=== PATIENT | male | born 1990 | race Caucasian/White ===

== ENCOUNTER 2021-04-28 13:19 | Inpatient (IN) | payer MEDICAID ==
[~2021-04-28] VITALS: Ht 162.6 cm; Wt 106.3 kg
[2021-04-29] MEDS ORDERED: ChlorproMAZINE HCL 100 MG TABLET PO PRN (16:00)
[2021-04-29] MEDS: OLANZapine 5 MG RAPDIS TABLET PO SCH (17:09)
[2021-04-29] MEDS: DIVALPROEX SODIUM 250 MG DR TABLET PO SCH ×2 (17:09→20:16)
[2021-04-29 18:35] VITALS: BP 122/61
[2021-04-29] MEDS ORDERED: INFLUENZA VIRUS VACCINE QVS 2021-22 (6MO+)/PF 60 MCG/0.5 ML SYRINGE IM. ONE (18:45)
[2021-04-29] MEDS: LORazepam 2 MG TABLET PO PRN (20:16)
[2021-04-29 21:31] LABS: AMPHET/METH SCREEN,URINE NEGATIVE (NEGATIVE); BARBITURATE SCREEN, URINE NEGATIVE (NEGATIVE); BENZODIAZEPINES SCREEN,URINE NEGATIVE (NEGATIVE); CANNABINOID SCREEN,URINE NEGATIVE (NEGATIVE); COCAINE SCREEN,URINE NEGATIVE (NEGATIVE); METHADONE SCREEN, URINE NEGATIVE (NEGATIVE); OPIATE SCREEN,URINE NEGATIVE (NEGATIVE)
[2021-04-29 21:36] LABS: APPEARANCE,URINE CLEAR (CLEAR); BILIRUBIN,URINE NEGATIVE (NEGATIVE); GLUCOSE, URINE (UA) NEGATIVE (NEGATIVE); KETONES,URINE NEGATIVE (NEGATIVE); LEUKOCYTE ESTERASE ,URINE NEGATIVE (NEGATIVE); NITRATE,URINE NEGATIVE (NEGATIVE); OCCULT BLOOD,URINE NEGATIVE (NEGATIVE); PH,URINE 6.5 (5.0-8.0); PROTEIN,URINE NEGATIVE (NEGATIVE); UROBILINOGEN,URINE 0.2 mg/dL (<=1.0)
[2021-04-29 21:43] LABS: PHENCYCLIDINE SCREEN,URINE NEGATIVE (NEGATIVE)
[2021-04-29] MEDS ORDERED: MAGNESIUM HYDROXIDE SUSPENSION 30 ML UDCUP PO PRN (21:45)
[2021-04-29] MEDS ORDERED: GuaiFENesin/D-METHORPHAN [SUGAR-FREE] 200-20MG/10 ML SYRUP UDCUP PO PRN (21:45)
[2021-04-29] MEDS ORDERED: OLANZapine 5 MG RAPDIS TABLET PO PRN (21:45)
[2021-04-29] MEDS ORDERED: HydrOXYzine PAMOATE 50 MG CAPSULE PO PRN (21:45)
[2021-04-29] MEDS ORDERED: LOPERAMIDE HCL 2 MG CAPSULE PO PRN (21:45)
[2021-04-29] MEDS ORDERED: ACETAMINOPHEN 325 MG TABLET PO PRN (21:45)
[2021-04-29] MEDS ORDERED: MAG HYDROX/AL HYDROX/SIMETH ES 30 ML SUSPENSION UDCUP PO PRN (21:45)
[2021-04-29] MEDS ORDERED: PROMETHAZINE HCL 25 MG TABLET PO PRN (21:45)
[2021-04-29] MEDS ORDERED: TUBERCULIN, PURIFIED PROTEIN DERIVATIVE 5 TU/0.1 ML SYRINGE ID ONE (21:45)
[2021-04-30] MEDS: MULTIVITAMINS WITH MINERALS, THERAPEUTIC TABLET PO SCH (08:27)
[2021-04-30] MEDS: OLANZapine 5 MG RAPDIS TABLET PO SCH ×2 (08:28→15:51)
[2021-04-30] MEDS: FOLIC ACID 1 MG TABLET PO SCH (08:28)
[2021-04-30] MEDS: THIAMINE 100 MG TABLET PO SCH ×2 (08:28→15:51)
[2021-04-30] MEDS: OMEGA-3/DHA/EPA/FISH OIL 1,000 MG CAPSULE PO SCH (08:28)
[2021-04-30] MEDS: CIPROFLOXACIN HCL 250 MG TABLET PO SCH ×2 (08:29→15:51)
[2021-04-30] MEDS: LevETIRAcetam 500 MG TABLET PO SCH ×2 (08:29→15:51)
[2021-04-30] MEDS: DIVALPROEX SODIUM 250 MG DR TABLET PO SCH ×3 (08:31→20:04)
[2021-04-30 10:15] LABS: BASOPHILS % (AUTO) 0.5 % (0.0-2.0); EOSINOPHILS % (AUTO) 4.4 % (1.0-6.0); HEMATOCRIT 41.8 % (41-53); HEMOGLOBIN 14.3 g/dL (13.5-17.5); LYMPHOCYTES # (AUTO) 1.7 K/uL (1.0-4.8); LYMPHOCYTES % (AUTO) 40.8 % (22.0-44.0); MEAN CORPUSCULAR HEMOGLOBIN 31.1 pg (26.0-34.0); MEAN CORPUSCULAR HGB CONC 34.1 G/dL (31.0-37.0); MEAN CORPUSCULAR VOLUME 91 fL (80-100); MONOCYTES # (AUTO) 0.2 K/uL (0.1-1.0); MONOCYTES % (AUTO) 4.8 % (2.0-9.0); NEUTROPHILS % (AUTO) 49.5 % (40.0-70.0); PLATELET COUNT (AUTO) 132 K/uL (150-450); RED BLOOD CELL COUNT(AUTO) 4.59 MIL/uL (4.50-5.90)
[2021-04-30 10:26] LABS: HEMOGLOBIN A1C 3.9 % (3.8-5.6)
[2021-04-30 10:38] LABS: ALANINE AMINOTRANSFERASE 17 U/L (12-78); ALKALINE PHOSPHATASE 82 U/L (46-116); ANION GAP 4 mmol/L (8-16); ASPARTATE AMINOTRANSFERASE 14 U/L (15-37); BILIRUBIN,TOTAL 0.6 mg/dL (0.1-1.0); CALCIUM, TOTAL 9.1 mg/dL (8.8-10.5); CARBON DIOXIDE 31 mmol/L (22-29); CHLORIDE 105 mmol/L (98-107); CHOL/HDL RATIO 3.2 (4.2-7.3); CHOLESTEROL 123 mg/dL (131-200); CREATININE 0.59 mg/dL (0.60-1.30); FREE T4 (FREE THYROXINE) 0.86 ng/dL (0.76-1.46); GLUCOSE,RANDOM 81 mg/dL (70-110); HDL CHOLESTEROL 39 mg/dL (40-60); LDL CHOL (CALC.) 65 mg/dL (0-130); POTASSIUM 4.4 mmol/L (3.5-5.1); SODIUM SERUM 140 mmol/L (136-145); THYROID STIMULATING HORMONE 4.83 uIU/mL (0.36-3.74); TOTAL PROTEIN, SERUM 6.8 g/dL (6.4-8.2); TRIGLYCERIDES 96 mg/dL (15-150); UREA NITROGEN, BLOOD 5 mg/dL (7-18); VALPROIC ACID 35 mcg/mL (50-100)
[2021-04-30 10:40] LABS: GLOMERULAR FILTR. RATE CALC > 60 mL/min (>60)
[2021-04-30] MEDS ORDERED: POVIDONE-IODINE 10% 240 ML SOLUTION TP ONE (10:59)
[2021-04-30 16:19] VITALS: BP 109/60
[2021-04-30] MEDS: NALTREXONE HCL 50 MG TABLET PO SCH (20:03)
[2021-04-30] MEDS: MELATONIN 5 MG TABLET PO SCH (20:04)
[2021-05-01] MEDS: LEVOTHYROXINE SODIUM 50 MCG TABLET PO SCH (06:57)
[2021-05-01 08:50] VITALS: BP 118/69
[2021-05-01] MEDS: CIPROFLOXACIN HCL 250 MG TABLET PO SCH ×2 (10:50→16:26)
[2021-05-01] MEDS: OMEGA-3/DHA/EPA/FISH OIL 1,000 MG CAPSULE PO SCH (10:52)
[2021-05-01] MEDS: MULTIVITAMINS WITH MINERALS, THERAPEUTIC TABLET PO SCH (10:52)
[2021-05-01] MEDS: FOLIC ACID 1 MG TABLET PO SCH (10:53)
[2021-05-01] MEDS: THIAMINE 100 MG TABLET PO SCH ×2 (10:53→16:26)
[2021-05-01] MEDS: OLANZapine 5 MG RAPDIS TABLET PO SCH ×2 (10:53→16:26)
[2021-05-01] MEDS: LevETIRAcetam 500 MG TABLET PO SCH ×2 (10:53→16:26)
[2021-05-01] MEDS: DIVALPROEX SODIUM 250 MG DR TABLET PO SCH ×3 (10:53→21:00)
[2021-05-01 16:00] VITALS: BP 138/74
[2021-05-01] MEDS: NALTREXONE HCL 50 MG TABLET PO SCH (21:00)
[2021-05-01] MEDS: MELATONIN 5 MG TABLET PO SCH (21:00)
[2021-05-01] MEDS: LORazepam 2 MG TABLET PO PRN (21:01)
[2021-05-02] MEDS: LEVOTHYROXINE SODIUM 50 MCG TABLET PO SCH (06:57)
[2021-05-02 08:39] VITALS: BP 108/60
[2021-05-02] MEDS: FOLIC ACID 1 MG TABLET PO SCH (08:58)
[2021-05-02] MEDS: CIPROFLOXACIN HCL 250 MG TABLET PO SCH ×2 (08:58→16:24)
[2021-05-02] MEDS: MULTIVITAMINS WITH MINERALS, THERAPEUTIC TABLET PO SCH (08:59)
[2021-05-02] MEDS: OLANZapine 5 MG RAPDIS TABLET PO SCH ×3 (08:59→16:26)
[2021-05-02] MEDS: LevETIRAcetam 500 MG TABLET PO SCH ×2 (08:59→16:26)
[2021-05-02] MEDS: THIAMINE 100 MG TABLET PO SCH ×2 (08:59→16:26)
[2021-05-02] MEDS: DIVALPROEX SODIUM 250 MG DR TABLET PO SCH ×3 (08:59→20:32)
[2021-05-02] MEDS: OMEGA-3/DHA/EPA/FISH OIL 1,000 MG CAPSULE PO SCH (09:00)
[2021-05-02 16:29] VITALS: BP 102/62
[2021-05-02] MEDS: NALTREXONE HCL 50 MG TABLET PO SCH (20:32)
[2021-05-02] MEDS: MELATONIN 5 MG TABLET PO SCH (20:33)
[2021-05-03] MEDS: LEVOTHYROXINE SODIUM 50 MCG TABLET PO SCH (06:10)
[2021-05-03] MEDS: FOLIC ACID 1 MG TABLET PO SCH (08:42)
[2021-05-03] MEDS: MULTIVITAMINS WITH MINERALS, THERAPEUTIC TABLET PO SCH (08:42)
[2021-05-03] MEDS: CIPROFLOXACIN HCL 250 MG TABLET PO SCH ×2 (08:43→17:00)
[2021-05-03] MEDS: THIAMINE 100 MG TABLET PO SCH ×2 (08:43→16:37)
[2021-05-03] MEDS: OLANZapine 5 MG RAPDIS TABLET PO SCH ×3 (08:43→16:37)
[2021-05-03] MEDS: LevETIRAcetam 500 MG TABLET PO SCH ×2 (08:43→16:37)
[2021-05-03] MEDS: DIVALPROEX SODIUM 250 MG DR TABLET PO SCH ×3 (08:43→20:04)
[2021-05-03] MEDS: OMEGA-3/DHA/EPA/FISH OIL 1,000 MG CAPSULE PO SCH (08:43)
[2021-05-03 09:26] VITALS: BP 115/60
[2021-05-03] MEDS: NALTREXONE HCL 50 MG TABLET PO SCH (20:03)
[2021-05-03] MEDS: MELATONIN 5 MG TABLET PO SCH (20:04)
[2021-05-04] MEDS: LEVOTHYROXINE SODIUM 50 MCG TABLET PO SCH (06:36)
[2021-05-04 08:00] VITALS: BP 107/57
[2021-05-04] MEDS: OLANZapine 5 MG RAPDIS TABLET PO SCH ×4 (08:13→21:16)
[2021-05-04] MEDS: MULTIVITAMINS WITH MINERALS, THERAPEUTIC TABLET PO SCH (08:13)
[2021-05-04] MEDS: THIAMINE 100 MG TABLET PO SCH ×2 (08:14→16:03)
[2021-05-04] MEDS: CIPROFLOXACIN HCL 250 MG TABLET PO SCH ×2 (08:14→16:03)
[2021-05-04] MEDS: LevETIRAcetam 500 MG TABLET PO SCH ×2 (08:14→16:03)
[2021-05-04] MEDS: FOLIC ACID 1 MG TABLET PO SCH (08:14)
[2021-05-04] MEDS: DIVALPROEX SODIUM 250 MG DR TABLET PO SCH ×3 (08:14→20:04)
[2021-05-04] MEDS: OMEGA-3/DHA/EPA/FISH OIL 1,000 MG CAPSULE PO SCH (08:14)
[2021-05-04 16:17] VITALS: BP 106/54
[2021-05-04] MEDS: MELATONIN 5 MG TABLET PO SCH (20:04)
[2021-05-04] MEDS: NALTREXONE HCL 50 MG TABLET PO SCH ×2 (20:05→21:58)
[2021-05-05] MEDS: LEVOTHYROXINE SODIUM 50 MCG TABLET PO SCH (06:54)
[2021-05-05 08:00] VITALS: BP 120/57
[2021-05-05] MEDS: THIAMINE 100 MG TABLET PO SCH ×2 (08:34→15:51)
[2021-05-05] MEDS: OLANZapine 5 MG RAPDIS TABLET PO SCH ×4 (08:34→20:05)
[2021-05-05] MEDS: DIVALPROEX SODIUM 250 MG DR TABLET PO SCH ×3 (08:34→20:05)
[2021-05-05] MEDS: MULTIVITAMINS WITH MINERALS, THERAPEUTIC TABLET PO SCH (08:34)
[2021-05-05] MEDS: OMEGA-3/DHA/EPA/FISH OIL 1,000 MG CAPSULE PO SCH (08:34)
[2021-05-05] MEDS: FOLIC ACID 1 MG TABLET PO SCH (08:34)
[2021-05-05] MEDS: LevETIRAcetam 500 MG TABLET PO SCH ×2 (08:35→15:51)
[2021-05-05] MEDS: CIPROFLOXACIN HCL 250 MG TABLET PO SCH ×2 (08:36→15:51)
[2021-05-05 16:00] VITALS: BP 105/61
[2021-05-05] MEDS: MELATONIN 5 MG TABLET PO SCH (20:05)
[2021-05-05] MEDS: NALTREXONE HCL 50 MG TABLET PO SCH (20:05)
[2021-05-06] MEDS: LEVOTHYROXINE SODIUM 50 MCG TABLET PO SCH (06:42)
[2021-05-06 08:00] VITALS: BP 143/87
[2021-05-06] MEDS: FOLIC ACID 1 MG TABLET PO SCH (11:21)
[2021-05-06] MEDS: LevETIRAcetam 500 MG TABLET PO SCH ×2 (11:21→15:53)
[2021-05-06] MEDS: THIAMINE 100 MG TABLET PO SCH ×2 (11:21→15:53)
[2021-05-06] MEDS: MULTIVITAMINS WITH MINERALS, THERAPEUTIC TABLET PO SCH (11:22)
[2021-05-06] MEDS: OMEGA-3/DHA/EPA/FISH OIL 1,000 MG CAPSULE PO SCH (11:22)
[2021-05-06] MEDS: OLANZapine 5 MG RAPDIS TABLET PO SCH ×4 (11:22→20:25)
[2021-05-06] MEDS: DIVALPROEX SODIUM 250 MG DR TABLET PO SCH ×3 (11:22→20:26)
[2021-05-06] MEDS: CIPROFLOXACIN HCL 250 MG TABLET PO SCH ×2 (11:22→17:00)
[2021-05-06 17:04] VITALS: BP 102/64
[2021-05-06] MEDS: NALTREXONE HCL 50 MG TABLET PO SCH (20:25)
[2021-05-06] MEDS: MELATONIN 5 MG TABLET PO SCH (20:25)
[2021-05-07] MEDS: LEVOTHYROXINE SODIUM 50 MCG TABLET PO SCH (06:30)
[2021-05-07 08:48] VITALS: BP 134/81
[2021-05-07 09:29] LABS: COVID AG,FIA SOURCE NASAL SWAB
[2021-05-07] MEDS: THIAMINE 100 MG TABLET PO SCH ×2 (10:15→15:55)
[2021-05-07] MEDS: OLANZapine 5 MG RAPDIS TABLET PO SCH ×4 (10:15→20:48)
[2021-05-07] MEDS: LevETIRAcetam 500 MG TABLET PO SCH ×2 (10:15→15:56)
[2021-05-07] MEDS: FOLIC ACID 1 MG TABLET PO SCH (10:15)
[2021-05-07] MEDS: MULTIVITAMINS WITH MINERALS, THERAPEUTIC TABLET PO SCH (10:15)
[2021-05-07] MEDS: DIVALPROEX SODIUM 250 MG DR TABLET PO SCH ×3 (10:15→20:49)
[2021-05-07] MEDS: OMEGA-3/DHA/EPA/FISH OIL 1,000 MG CAPSULE PO SCH (10:15)
[2021-05-07] MEDS ORDERED: ACET325T51 PO ×2 (14:42→14:47)
[2021-05-07] MEDS ORDERED: ZOLP10TA2 PO (14:49)
[2021-05-07] MEDS ORDERED: DIVA-111 PO (16:56)
[2021-05-07] MEDS ORDERED: OMEG-135 PO (16:56)
[2021-05-07] MEDS ORDERED: MELA5TAB40 PO (16:56)
[2021-05-07] MEDS ORDERED: LEVE500T8 PO (16:56)
[2021-05-07] MEDS ORDERED: NALT50TA PO (16:56)
[2021-05-07] MEDS ORDERED: OLAN5TAB94 PO (16:56)
[2021-05-07 17:06] VITALS: BP 106/60
[2021-05-07] MEDS: MELATONIN 5 MG TABLET PO SCH (20:48)
[2021-05-07] MEDS: NALTREXONE HCL 50 MG TABLET PO SCH (20:49)
[2021-05-08] MEDS: ZOLPIDEM TARTRATE 10 MG TABLET PO PRN (00:56)
[2021-05-08 00:57] VITALS: BP 102/61
[2021-05-08] MEDS: LEVOTHYROXINE SODIUM 50 MCG TABLET PO SCH (06:42)
[2021-05-08] MEDS: OMEGA-3/DHA/EPA/FISH OIL 1,000 MG CAPSULE PO SCH (07:38)
[2021-05-08] MEDS: MULTIVITAMINS WITH MINERALS, THERAPEUTIC TABLET PO SCH (07:38)
[2021-05-08] MEDS: DIVALPROEX SODIUM 250 MG DR TABLET PO SCH ×3 (07:39→20:39)
[2021-05-08] MEDS: OLANZapine 5 MG RAPDIS TABLET PO SCH ×4 (07:39→20:39)
[2021-05-08] MEDS: THIAMINE 100 MG TABLET PO SCH ×2 (07:39→16:29)
[2021-05-08] MEDS: LevETIRAcetam 500 MG TABLET PO SCH ×2 (07:39→16:29)
[2021-05-08] MEDS: FOLIC ACID 1 MG TABLET PO SCH (07:39)
[2021-05-08 08:00] VITALS: BP 119/60
[2021-05-08 16:00] VITALS: BP 113/74
[2021-05-08] MEDS: NALTREXONE HCL 50 MG TABLET PO SCH (20:40)
[2021-05-08] MEDS: MELATONIN 5 MG TABLET PO SCH (20:40)
[2021-05-09] MEDS: ZOLPIDEM TARTRATE 10 MG TABLET PO PRN ×2 (01:00→23:52)
[2021-05-09] MEDS: LEVOTHYROXINE SODIUM 50 MCG TABLET PO SCH (06:07)
[2021-05-09 08:00] VITALS: BP 116/62
[2021-05-09] MEDS: OLANZapine 5 MG RAPDIS TABLET PO SCH ×4 (09:57→20:34)
[2021-05-09] MEDS: OMEGA-3/DHA/EPA/FISH OIL 1,000 MG CAPSULE PO SCH (09:57)
[2021-05-09] MEDS: THIAMINE 100 MG TABLET PO SCH ×2 (09:57→16:38)
[2021-05-09] MEDS: LevETIRAcetam 500 MG TABLET PO SCH ×2 (09:57→16:38)
[2021-05-09] MEDS: FOLIC ACID 1 MG TABLET PO SCH (09:57)
[2021-05-09] MEDS: MULTIVITAMINS WITH MINERALS, THERAPEUTIC TABLET PO SCH (09:58)
[2021-05-09] MEDS: DIVALPROEX SODIUM 250 MG DR TABLET PO SCH ×3 (09:59→20:33)
[2021-05-09 18:33] VITALS: BP 131/85
[2021-05-09] MEDS: MELATONIN 5 MG TABLET PO SCH (20:34)
[2021-05-09] MEDS: NALTREXONE HCL 50 MG TABLET PO SCH (20:34)
[2021-05-10] MEDS: LEVOTHYROXINE SODIUM 50 MCG TABLET PO SCH (06:21)
[2021-05-10 08:00] VITALS: BP 115/64
[2021-05-10] MEDS: OLANZapine 5 MG RAPDIS TABLET PO SCH ×4 (08:10→20:17)
[2021-05-10] MEDS: OMEGA-3/DHA/EPA/FISH OIL 1,000 MG CAPSULE PO SCH (08:11)
[2021-05-10] MEDS: LevETIRAcetam 500 MG TABLET PO SCH ×2 (08:11→16:43)
[2021-05-10] MEDS: MULTIVITAMINS WITH MINERALS, THERAPEUTIC TABLET PO SCH (08:11)
[2021-05-10] MEDS: DIVALPROEX SODIUM 250 MG DR TABLET PO SCH ×3 (08:11→20:17)
[2021-05-10 16:15] VITALS: BP 126/77
[2021-05-10] MEDS: NALTREXONE HCL 50 MG TABLET PO SCH (20:17)
[2021-05-10] MEDS: MELATONIN 5 MG TABLET PO SCH (20:17)
[2021-05-10] MEDS: LORazepam 2 MG TABLET PO PRN (20:18)
[2021-05-11] MEDS: LEVOTHYROXINE SODIUM 50 MCG TABLET PO SCH (06:02)
[2021-05-11 08:00] VITALS: BP 153/107
[2021-05-11] MEDS: LORazepam 2 MG TABLET PO PRN ×2 (08:03→13:13)
[2021-05-11] MEDS: OLANZapine 5 MG RAPDIS TABLET PO SCH ×4 (08:45→20:11)
[2021-05-11] MEDS: DIVALPROEX SODIUM 250 MG DR TABLET PO SCH ×3 (08:46→20:11)
[2021-05-11] MEDS: OMEGA-3/DHA/EPA/FISH OIL 1,000 MG CAPSULE PO SCH (08:46)
[2021-05-11] MEDS: LevETIRAcetam 500 MG TABLET PO SCH ×2 (08:47→16:07)
[2021-05-11] MEDS: MULTIVITAMINS WITH MINERALS, THERAPEUTIC TABLET PO SCH (08:47)
[2021-05-11 17:01] VITALS: BP 127/81
[2021-05-11] MEDS: MELATONIN 5 MG TABLET PO SCH (20:11)
[2021-05-11] MEDS: NALTREXONE HCL 50 MG TABLET PO SCH (20:11)
[2021-05-12] MEDS: LEVOTHYROXINE SODIUM 50 MCG TABLET PO SCH (06:11)
[2021-05-12] MEDS: OMEGA-3/DHA/EPA/FISH OIL 1,000 MG CAPSULE PO SCH (08:02)
[2021-05-12] MEDS: MULTIVITAMINS WITH MINERALS, THERAPEUTIC TABLET PO SCH (08:02)
[2021-05-12] MEDS: OLANZapine 5 MG RAPDIS TABLET PO SCH ×5 (08:02→20:35)
[2021-05-12] MEDS: DIVALPROEX SODIUM 250 MG DR TABLET PO SCH ×3 (08:02→20:35)
[2021-05-12] MEDS: LevETIRAcetam 500 MG TABLET PO SCH ×2 (08:02→18:38)
[2021-05-12 08:38] VITALS: BP_SYST 131; BP_SYST 150; BP_DIAS 63; BP_DIAS 78
[2021-05-12 16:37] VITALS: BP 117/66
[2021-05-12] MEDS: NALTREXONE HCL 50 MG TABLET PO SCH (20:35)
[2021-05-12] MEDS: MELATONIN 5 MG TABLET PO SCH (20:35)
[2021-05-13] MEDS: ZOLPIDEM TARTRATE 10 MG TABLET PO PRN (00:49)
[2021-05-13] MEDS: LEVOTHYROXINE SODIUM 50 MCG TABLET PO SCH (06:24)
[2021-05-13 08:00] VITALS: BP 116/54
[2021-05-13] MEDS: LevETIRAcetam 500 MG TABLET PO SCH ×2 (08:54→16:11)
[2021-05-13] MEDS: MULTIVITAMINS WITH MINERALS, THERAPEUTIC TABLET PO SCH (08:54)
[2021-05-13] MEDS: OMEGA-3/DHA/EPA/FISH OIL 1,000 MG CAPSULE PO SCH (08:54)
[2021-05-13] MEDS: DIVALPROEX SODIUM 250 MG DR TABLET PO SCH ×3 (08:54→20:10)
[2021-05-13] MEDS: OLANZapine 5 MG RAPDIS TABLET PO SCH ×4 (08:54→20:09)
[2021-05-13 16:38] VITALS: BP 131/85
[2021-05-13] MEDS: NALTREXONE HCL 50 MG TABLET PO SCH (20:09)
[2021-05-13] MEDS: MELATONIN 5 MG TABLET PO SCH (20:09)
[2021-05-14] MEDS: LEVOTHYROXINE SODIUM 50 MCG TABLET PO SCH (06:45)
[2021-05-14 07:06] LABS: COVID AG,FIA SOURCE NASAL SWAB
[2021-05-14 08:00] VITALS: BP 126/75
[2021-05-14] MEDS: DIVALPROEX SODIUM 250 MG DR TABLET PO SCH ×3 (10:52→20:14)
[2021-05-14] MEDS: OLANZapine 5 MG RAPDIS TABLET PO SCH ×4 (10:53→20:14)
[2021-05-14] MEDS: MULTIVITAMINS WITH MINERALS, THERAPEUTIC TABLET PO SCH (10:53)
[2021-05-14] MEDS: OMEGA-3/DHA/EPA/FISH OIL 1,000 MG CAPSULE PO SCH (10:53)
[2021-05-14] MEDS: LevETIRAcetam 500 MG TABLET PO SCH ×2 (10:53→16:01)
[2021-05-14 16:45] VITALS: BP 103/60
[2021-05-14] MEDS: MELATONIN 5 MG TABLET PO SCH (20:14)
[2021-05-14] MEDS: NALTREXONE HCL 50 MG TABLET PO SCH (20:14)
[2021-05-15] MEDS: LEVOTHYROXINE SODIUM 50 MCG TABLET PO SCH (06:32)
[2021-05-15] MEDS: LevETIRAcetam 500 MG TABLET PO SCH ×2 (08:12→16:25)
[2021-05-15] MEDS: OMEGA-3/DHA/EPA/FISH OIL 1,000 MG CAPSULE PO SCH (08:12)
[2021-05-15] MEDS: OLANZapine 5 MG RAPDIS TABLET PO SCH ×4 (08:12→21:14)
[2021-05-15] MEDS: DIVALPROEX SODIUM 250 MG DR TABLET PO SCH ×3 (08:12→21:14)
[2021-05-15] MEDS: MULTIVITAMINS WITH MINERALS, THERAPEUTIC TABLET PO SCH (08:12)
[2021-05-15 12:30] VITALS: BP 138/57
[2021-05-15 16:00] VITALS: BP 138/72
[2021-05-15] MEDS: LORazepam 2 MG TABLET PO PRN (16:25)
[2021-05-15] MEDS: ZOLPIDEM TARTRATE 10 MG TABLET PO PRN (21:01)
[2021-05-15] MEDS: MELATONIN 5 MG TABLET PO SCH (21:14)
[2021-05-15] MEDS: NALTREXONE HCL 50 MG TABLET PO SCH (21:14)
[2021-05-16] MEDS: LEVOTHYROXINE SODIUM 50 MCG TABLET PO SCH (06:44)
[2021-05-16 08:00] VITALS: BP 139/90
[2021-05-16] MEDS: OLANZapine 5 MG RAPDIS TABLET PO SCH ×4 (09:38→20:21)
[2021-05-16] MEDS: OMEGA-3/DHA/EPA/FISH OIL 1,000 MG CAPSULE PO SCH (09:38)
[2021-05-16] MEDS: LevETIRAcetam 500 MG TABLET PO SCH ×2 (09:38→16:06)
[2021-05-16] MEDS: DIVALPROEX SODIUM 250 MG DR TABLET PO SCH ×3 (09:39→20:21)
[2021-05-16] MEDS: MULTIVITAMINS WITH MINERALS, THERAPEUTIC TABLET PO SCH (09:40)
[2021-05-16 17:41] VITALS: BP 112/73
[2021-05-16] MEDS: MELATONIN 5 MG TABLET PO SCH (20:21)
[2021-05-16] MEDS: NALTREXONE HCL 50 MG TABLET PO SCH (20:21)
[2021-05-16] MEDS: ZOLPIDEM TARTRATE 10 MG TABLET PO PRN (23:41)
[2021-05-17] MEDS: LEVOTHYROXINE SODIUM 50 MCG TABLET PO SCH (06:53)
[2021-05-17] MEDS: OLANZapine 5 MG RAPDIS TABLET PO SCH ×4 (07:48→20:01)
[2021-05-17] MEDS: OMEGA-3/DHA/EPA/FISH OIL 1,000 MG CAPSULE PO SCH (07:48)
[2021-05-17] MEDS: LevETIRAcetam 500 MG TABLET PO SCH ×2 (07:48→16:12)
[2021-05-17] MEDS: DIVALPROEX SODIUM 250 MG DR TABLET PO SCH ×3 (07:48→20:01)
[2021-05-17] MEDS: MULTIVITAMINS WITH MINERALS, THERAPEUTIC TABLET PO SCH (07:50)
[2021-05-17] MEDS: LORazepam 2 MG TABLET PO PRN ×2 (09:05→13:36)
[2021-05-17 13:59] LABS: COVID AG,FIA SOURCE NASOPHARYNGEAL
[2021-05-17] MEDS: MELATONIN 5 MG TABLET PO SCH (20:01)
[2021-05-17] MEDS: NALTREXONE HCL 50 MG TABLET PO SCH (20:01)
[2021-05-18] MEDS: LEVOTHYROXINE SODIUM 50 MCG TABLET PO SCH (06:34)
[2021-05-18] MEDS: DIVALPROEX SODIUM 250 MG DR TABLET PO SCH ×3 (10:03→21:08)
[2021-05-18] MEDS: OLANZapine 5 MG RAPDIS TABLET PO SCH ×5 (10:03→16:39)
[2021-05-18] MEDS: OMEGA-3/DHA/EPA/FISH OIL 1,000 MG CAPSULE PO SCH (10:03)
[2021-05-18] MEDS: MULTIVITAMINS WITH MINERALS, THERAPEUTIC TABLET PO SCH (10:03)
[2021-05-18] MEDS: LevETIRAcetam 500 MG TABLET PO SCH ×2 (10:03→16:38)
[2021-05-18] MEDS: LORazepam 2 MG TABLET PO PRN ×2 (13:53→14:17)
[2021-05-18] MEDS ORDERED: QUEtiapine FUMARATE 100 MG TABLET PO PRN (15:15)
[2021-05-18] MEDS: NALTREXONE HCL 50 MG TABLET PO SCH (21:08)
[2021-05-18] MEDS: MELATONIN 5 MG TABLET PO SCH (21:08)
[2021-05-19] MEDS: LEVOTHYROXINE SODIUM 50 MCG TABLET PO SCH (07:04)
[2021-05-19 08:00] VITALS: BP 152/69
[2021-05-19] MEDS: DIVALPROEX SODIUM 250 MG DR TABLET PO SCH ×3 (08:42→20:17)
[2021-05-19] MEDS: LevETIRAcetam 500 MG TABLET PO SCH ×2 (08:42→16:12)
[2021-05-19] MEDS: OMEGA-3/DHA/EPA/FISH OIL 1,000 MG CAPSULE PO SCH (08:42)
[2021-05-19] MEDS: MULTIVITAMINS WITH MINERALS, THERAPEUTIC TABLET PO SCH (08:42)
[2021-05-19] MEDS: OLANZapine 5 MG RAPDIS TABLET PO SCH ×3 (08:42→16:11)
[2021-05-19 16:30] VITALS: BP 152/98
[2021-05-19 16:52] VITALS: BP 152/98
[2021-05-19] MEDS: MELATONIN 5 MG TABLET PO SCH (20:17)
[2021-05-19] MEDS: NALTREXONE HCL 50 MG TABLET PO SCH (20:17)
[2021-05-20] MEDS: LEVOTHYROXINE SODIUM 50 MCG TABLET PO SCH (06:43)
[2021-05-20 08:00] VITALS: BP 165/98
[2021-05-20] MEDS: LORazepam 2 MG TABLET PO PRN (09:10)
[2021-05-20] MEDS: OLANZapine 5 MG RAPDIS TABLET PO SCH ×3 (09:11→16:07)
[2021-05-20] MEDS: MULTIVITAMINS WITH MINERALS, THERAPEUTIC TABLET PO SCH (09:11)
[2021-05-20] MEDS: LevETIRAcetam 500 MG TABLET PO SCH ×2 (09:11→16:07)
[2021-05-20] MEDS: OMEGA-3/DHA/EPA/FISH OIL 1,000 MG CAPSULE PO SCH (09:11)
[2021-05-20] MEDS: DIVALPROEX SODIUM 250 MG DR TABLET PO SCH ×3 (09:14→20:03)
[2021-05-20 16:22] VITALS: BP 154/95
[2021-05-20] MEDS: NALTREXONE HCL 50 MG TABLET PO SCH (20:03)
[2021-05-20] MEDS: MELATONIN 5 MG TABLET PO SCH (20:03)
[2021-05-21] MEDS: LEVOTHYROXINE SODIUM 50 MCG TABLET PO SCH (06:52)
[2021-05-21 08:00] VITALS: BP 164/98
[2021-05-21] MEDS: OLANZapine 5 MG RAPDIS TABLET PO SCH ×3 (09:38→16:23)
[2021-05-21] MEDS: OMEGA-3/DHA/EPA/FISH OIL 1,000 MG CAPSULE PO SCH (09:38)
[2021-05-21] MEDS: LevETIRAcetam 500 MG TABLET PO SCH ×2 (09:38→16:23)
[2021-05-21] MEDS: DIVALPROEX SODIUM 250 MG DR TABLET PO SCH ×3 (09:38→20:42)
[2021-05-21] MEDS: MULTIVITAMINS WITH MINERALS, THERAPEUTIC TABLET PO SCH (09:39)
[2021-05-21 16:06] VITALS: BP 157/93
[2021-05-21] MEDS: NALTREXONE HCL 50 MG TABLET PO SCH (20:42)
[2021-05-21] MEDS: MELATONIN 5 MG TABLET PO SCH (20:42)
[2021-05-22] MEDS: LEVOTHYROXINE SODIUM 50 MCG TABLET PO SCH (06:08)
[2021-05-22] MEDS: LevETIRAcetam 500 MG TABLET PO SCH ×2 (08:27→16:04)
[2021-05-22] MEDS: DIVALPROEX SODIUM 250 MG DR TABLET PO SCH ×3 (08:27→20:04)
[2021-05-22] MEDS: OMEGA-3/DHA/EPA/FISH OIL 1,000 MG CAPSULE PO SCH (08:27)
[2021-05-22] MEDS: OLANZapine 5 MG RAPDIS TABLET PO SCH ×3 (08:28→16:04)
[2021-05-22] MEDS: MULTIVITAMINS WITH MINERALS, THERAPEUTIC TABLET PO SCH (08:29)
[2021-05-22 09:14] VITALS: BP 158/93
[2021-05-22 17:48] VITALS: BP 121/80
[2021-05-22] MEDS: MELATONIN 5 MG TABLET PO SCH (20:04)
[2021-05-22] MEDS: NALTREXONE HCL 50 MG TABLET PO SCH (20:04)
[2021-05-23] MEDS: LEVOTHYROXINE SODIUM 50 MCG TABLET PO SCH (06:53)
[2021-05-23] MEDS: DIVALPROEX SODIUM 250 MG DR TABLET PO SCH ×3 (07:56→20:31)
[2021-05-23] MEDS: OMEGA-3/DHA/EPA/FISH OIL 1,000 MG CAPSULE PO SCH (07:56)
[2021-05-23] MEDS: LevETIRAcetam 500 MG TABLET PO SCH ×2 (07:56→16:33)
[2021-05-23] MEDS: MULTIVITAMINS WITH MINERALS, THERAPEUTIC TABLET PO SCH (07:56)
[2021-05-23] MEDS: OLANZapine 5 MG RAPDIS TABLET PO SCH ×3 (07:56→16:33)
[2021-05-23 16:00] VITALS: BP 130/61
[2021-05-23] MEDS: NALTREXONE HCL 50 MG TABLET PO SCH (20:31)
[2021-05-23] MEDS: MELATONIN 5 MG TABLET PO SCH (20:31)
[2021-05-24] MEDS: LEVOTHYROXINE SODIUM 50 MCG TABLET PO SCH (06:56)
[2021-05-24] MEDS: OMEGA-3/DHA/EPA/FISH OIL 1,000 MG CAPSULE PO SCH (08:18)
[2021-05-24] MEDS: MULTIVITAMINS WITH MINERALS, THERAPEUTIC TABLET PO SCH (08:18)
[2021-05-24] MEDS: LevETIRAcetam 500 MG TABLET PO SCH ×2 (08:18→17:07)
[2021-05-24] MEDS: DIVALPROEX SODIUM 250 MG DR TABLET PO SCH ×3 (08:18→20:28)
[2021-05-24] MEDS: OLANZapine 5 MG RAPDIS TABLET PO SCH ×3 (08:18→17:07)
[2021-05-24 08:54] VITALS: BP 105/62
[2021-05-24 11:41] LABS: COVID AG,FIA SOURCE NASAL SWAB
[2021-05-24 16:00] VITALS: BP 139/88
[2021-05-24] MEDS: MELATONIN 5 MG TABLET PO SCH (20:27)
[2021-05-24] MEDS: NALTREXONE HCL 50 MG TABLET PO SCH (20:27)
[2021-05-25] MEDS: LEVOTHYROXINE SODIUM 50 MCG TABLET PO SCH (06:38)
[2021-05-25 08:47] VITALS: BP 139/79
[2021-05-25] MEDS: DIVALPROEX SODIUM 250 MG DR TABLET PO SCH ×3 (10:43→20:05)
[2021-05-25] MEDS: LevETIRAcetam 500 MG TABLET PO SCH ×2 (10:43→16:04)
[2021-05-25] MEDS: OMEGA-3/DHA/EPA/FISH OIL 1,000 MG CAPSULE PO SCH (10:43)
[2021-05-25] MEDS: OLANZapine 5 MG RAPDIS TABLET PO SCH ×3 (10:44→16:04)
[2021-05-25] MEDS: MULTIVITAMINS WITH MINERALS, THERAPEUTIC TABLET PO SCH (10:44)
[2021-05-25 17:09] VITALS: BP 128/68
[2021-05-25] MEDS: MELATONIN 5 MG TABLET PO SCH (20:05)
[2021-05-25] MEDS: NALTREXONE HCL 50 MG TABLET PO SCH (20:05)
[2021-05-26] MEDS: LEVOTHYROXINE SODIUM 50 MCG TABLET PO SCH (06:50)
[2021-05-26] MEDS: DIVALPROEX SODIUM 250 MG DR TABLET PO SCH ×3 (09:32→20:15)
[2021-05-26] MEDS: OMEGA-3/DHA/EPA/FISH OIL 1,000 MG CAPSULE PO SCH (09:32)
[2021-05-26] MEDS: LevETIRAcetam 500 MG TABLET PO SCH ×2 (09:32→16:41)
[2021-05-26] MEDS: MULTIVITAMINS WITH MINERALS, THERAPEUTIC TABLET PO SCH (09:32)
[2021-05-26] MEDS: OLANZapine 5 MG RAPDIS TABLET PO SCH ×3 (09:33→16:41)
[2021-05-26 09:55] VITALS: BP 100/50
[2021-05-26 12:58] VITALS: BP 100/50
[2021-05-26 17:35] VITALS: BP 140/87
[2021-05-26] MEDS: MELATONIN 5 MG TABLET PO SCH (20:15)
[2021-05-26] MEDS: NALTREXONE HCL 50 MG TABLET PO SCH (20:15)
[2021-05-27] MEDS: LEVOTHYROXINE SODIUM 50 MCG TABLET PO SCH (06:42)
[2021-05-27 08:00] VITALS: BP 154/90
[2021-05-27] MEDS: OLANZapine 5 MG RAPDIS TABLET PO SCH ×3 (08:16→16:17)
[2021-05-27] MEDS: LevETIRAcetam 500 MG TABLET PO SCH ×2 (08:17→16:17)
[2021-05-27] MEDS: OMEGA-3/DHA/EPA/FISH OIL 1,000 MG CAPSULE PO SCH (08:17)
[2021-05-27] MEDS: DIVALPROEX SODIUM 250 MG DR TABLET PO SCH ×3 (08:17→21:10)
[2021-05-27] MEDS: MULTIVITAMINS WITH MINERALS, THERAPEUTIC TABLET PO SCH (08:17)
[2021-05-27 16:54] VITALS: BP 154/84
[2021-05-27] MEDS: MELATONIN 5 MG TABLET PO SCH (21:10)
[2021-05-27] MEDS: NALTREXONE HCL 50 MG TABLET PO SCH (21:10)
[2021-05-28] MEDS: LEVOTHYROXINE SODIUM 50 MCG TABLET PO SCH (06:33)
[2021-05-28] MEDS: DIVALPROEX SODIUM 250 MG DR TABLET PO SCH ×3 (07:47→20:37)
[2021-05-28] MEDS: MULTIVITAMINS WITH MINERALS, THERAPEUTIC TABLET PO SCH (07:47)
[2021-05-28] MEDS: OMEGA-3/DHA/EPA/FISH OIL 1,000 MG CAPSULE PO SCH (07:47)
[2021-05-28] MEDS: LevETIRAcetam 500 MG TABLET PO SCH ×2 (07:47→16:17)
[2021-05-28] MEDS: OLANZapine 5 MG RAPDIS TABLET PO SCH ×3 (07:48→16:17)
[2021-05-28 08:37] VITALS: BP 104/60
[2021-05-28 16:41] VITALS: BP 125/89
[2021-05-28] MEDS: NALTREXONE HCL 50 MG TABLET PO SCH (20:37)
[2021-05-28] MEDS: MELATONIN 5 MG TABLET PO SCH (20:37)
[2021-05-29] MEDS: LEVOTHYROXINE SODIUM 50 MCG TABLET PO SCH (06:33)
[2021-05-29 08:00] VITALS: BP 98/46
[2021-05-29] MEDS: LevETIRAcetam 500 MG TABLET PO SCH ×2 (09:21→16:07)
[2021-05-29] MEDS: OLANZapine 5 MG RAPDIS TABLET PO SCH ×3 (09:21→16:06)
[2021-05-29] MEDS: OMEGA-3/DHA/EPA/FISH OIL 1,000 MG CAPSULE PO SCH (09:21)
[2021-05-29] MEDS: DIVALPROEX SODIUM 250 MG DR TABLET PO SCH ×3 (09:21→20:13)
[2021-05-29] MEDS: MULTIVITAMINS WITH MINERALS, THERAPEUTIC TABLET PO SCH (09:23)
[2021-05-29 16:26] VITALS: BP 129/72
[2021-05-29] MEDS: MELATONIN 5 MG TABLET PO SCH (20:13)
[2021-05-29] MEDS: NALTREXONE HCL 50 MG TABLET PO SCH (20:13)
[2021-05-30] MEDS: LEVOTHYROXINE SODIUM 50 MCG TABLET PO SCH (06:21)
[2021-05-30 08:00] VITALS: BP 148/86
[2021-05-30] MEDS: OLANZapine 5 MG RAPDIS TABLET PO SCH ×3 (12:54→16:03)
[2021-05-30] MEDS: MULTIVITAMINS WITH MINERALS, THERAPEUTIC TABLET PO SCH (12:54)
[2021-05-30] MEDS: LevETIRAcetam 500 MG TABLET PO SCH ×2 (12:54→16:03)
[2021-05-30] MEDS: DIVALPROEX SODIUM 250 MG DR TABLET PO SCH ×3 (12:54→20:04)
[2021-05-30] MEDS: OMEGA-3/DHA/EPA/FISH OIL 1,000 MG CAPSULE PO SCH (12:54)
[2021-05-30 17:00] VITALS: BP 127/87
[2021-05-30] MEDS: MELATONIN 5 MG TABLET PO SCH (20:04)
[2021-05-30] MEDS: NALTREXONE HCL 50 MG TABLET PO SCH (20:04)
[2021-05-31] MEDS: LEVOTHYROXINE SODIUM 50 MCG TABLET PO SCH (06:29)
[2021-05-31 08:00] VITALS: BP 147/88
[2021-05-31] MEDS: LevETIRAcetam 500 MG TABLET PO SCH ×2 (11:05→17:05)
[2021-05-31] MEDS: MULTIVITAMINS WITH MINERALS, THERAPEUTIC TABLET PO SCH (11:05)
[2021-05-31] MEDS: OMEGA-3/DHA/EPA/FISH OIL 1,000 MG CAPSULE PO SCH (11:05)
[2021-05-31] MEDS: OLANZapine 5 MG RAPDIS TABLET PO SCH ×3 (11:05→17:05)
[2021-05-31] MEDS: DIVALPROEX SODIUM 250 MG DR TABLET PO SCH ×3 (11:05→21:09)
[2021-05-31 17:08] VITALS: BP 128/73
[2021-05-31] MEDS: MELATONIN 5 MG TABLET PO SCH (21:09)
[2021-05-31] MEDS: NALTREXONE HCL 50 MG TABLET PO SCH (21:10)
[2021-06-01] MEDS: LEVOTHYROXINE SODIUM 50 MCG TABLET PO SCH (06:35)
[2021-06-01 08:49] VITALS: BP 116/79
[2021-06-01] MEDS: DIVALPROEX SODIUM 250 MG DR TABLET PO SCH ×3 (08:49→20:24)
[2021-06-01] MEDS: OLANZapine 5 MG RAPDIS TABLET PO SCH ×3 (08:49→16:33)
[2021-06-01] MEDS: LevETIRAcetam 500 MG TABLET PO SCH ×2 (08:49→16:32)
[2021-06-01] MEDS: MULTIVITAMINS WITH MINERALS, THERAPEUTIC TABLET PO SCH (08:49)
[2021-06-01] MEDS: OMEGA-3/DHA/EPA/FISH OIL 1,000 MG CAPSULE PO SCH (08:49)
[2021-06-01 13:51] LABS: COVID AG,FIA SOURCE NASAL SWAB
[2021-06-01 16:12] VITALS: BP 134/83
[2021-06-01] MEDS: LORazepam 2 MG TABLET PO PRN (16:33)
[2021-06-01] MEDS: TRIHEXYPHENIDYL HCL 2 MG TABLET PO SCH (17:25)
[2021-06-01] MEDS: NALTREXONE HCL 50 MG TABLET PO SCH (20:24)
[2021-06-01] MEDS: MELATONIN 5 MG TABLET PO SCH (20:25)
[2021-06-01] MEDS ORDERED: HALOPERIDOL 5 MG TABLET PO SCH (21:00)
[2021-06-01] MEDS: ZOLPIDEM TARTRATE 10 MG TABLET PO PRN (21:00)
[2021-06-02] MEDS: LEVOTHYROXINE SODIUM 50 MCG TABLET PO SCH (06:53)
[2021-06-02 08:00] VITALS: BP 104/57
[2021-06-02] MEDS: DIVALPROEX SODIUM 250 MG DR TABLET PO SCH ×3 (11:15→20:03)
[2021-06-02] MEDS: TRIHEXYPHENIDYL HCL 2 MG TABLET PO SCH ×3 (11:15→16:03)
[2021-06-02] MEDS: MULTIVITAMINS WITH MINERALS, THERAPEUTIC TABLET PO SCH (11:15)
[2021-06-02] MEDS: LevETIRAcetam 500 MG TABLET PO SCH ×2 (11:15→16:04)
[2021-06-02] MEDS: OLANZapine 5 MG RAPDIS TABLET PO SCH ×3 (11:16→17:00)
[2021-06-02] MEDS: OMEGA-3/DHA/EPA/FISH OIL 1,000 MG CAPSULE PO SCH (11:18)
[2021-06-02 16:28] VITALS: BP 121/76
[2021-06-02] MEDS: HALOPERIDOL 10 MG TABLET PO SCH (20:02)
[2021-06-02] MEDS: MELATONIN 5 MG TABLET PO SCH (20:02)
[2021-06-02] MEDS: NALTREXONE HCL 50 MG TABLET PO SCH (20:02)
[2021-06-03] MEDS: LEVOTHYROXINE SODIUM 50 MCG TABLET PO SCH (06:37)
[2021-06-03 08:00] VITALS: BP 114/72
[2021-06-03] MEDS: OLANZapine 5 MG RAPDIS TABLET PO SCH ×2 (09:16→16:32)
[2021-06-03] MEDS: MULTIVITAMINS WITH MINERALS, THERAPEUTIC TABLET PO SCH (09:16)
[2021-06-03] MEDS: DIVALPROEX SODIUM 250 MG DR TABLET PO SCH ×3 (09:16→20:24)
[2021-06-03] MEDS: LevETIRAcetam 500 MG TABLET PO SCH ×2 (09:16→16:32)
[2021-06-03] MEDS: OMEGA-3/DHA/EPA/FISH OIL 1,000 MG CAPSULE PO SCH (09:16)
[2021-06-03] MEDS: TRIHEXYPHENIDYL HCL 2 MG TABLET PO SCH ×3 (09:16→16:31)
[2021-06-03] MEDS: HALOPERIDOL 5 MG TABLET PO PRN (16:33)
[2021-06-03 16:45] VITALS: BP 144/86
[2021-06-03] MEDS: LORazepam 2 MG TABLET PO PRN (19:00)
[2021-06-03] MEDS: HALOPERIDOL 10 MG TABLET PO SCH (20:25)
[2021-06-03] MEDS: NALTREXONE HCL 50 MG TABLET PO SCH (20:25)
[2021-06-03] MEDS: MELATONIN 5 MG TABLET PO SCH (20:25)
[2021-06-03] MEDS: ZOLPIDEM TARTRATE 10 MG TABLET PO PRN (20:52)
[2021-06-04] MEDS: LEVOTHYROXINE SODIUM 50 MCG TABLET PO SCH (06:14)
[2021-06-04 09:35] VITALS: BP 104/66
[2021-06-04] MEDS: DIVALPROEX SODIUM 250 MG DR TABLET PO SCH ×3 (09:47→20:05)
[2021-06-04] MEDS: LevETIRAcetam 500 MG TABLET PO SCH ×2 (09:47→16:04)
[2021-06-04] MEDS: TRIHEXYPHENIDYL HCL 2 MG TABLET PO SCH ×3 (09:47→16:04)
[2021-06-04] MEDS: OLANZapine 5 MG RAPDIS TABLET PO SCH ×2 (09:47→16:04)
[2021-06-04] MEDS: OMEGA-3/DHA/EPA/FISH OIL 1,000 MG CAPSULE PO SCH (09:47)
[2021-06-04] MEDS: MULTIVITAMINS WITH MINERALS, THERAPEUTIC TABLET PO SCH (09:47)
[2021-06-04 16:33] VITALS: BP 135/65
[2021-06-04] MEDS: NALTREXONE HCL 50 MG TABLET PO SCH (20:04)
[2021-06-04] MEDS: HALOPERIDOL 10 MG TABLET PO SCH (20:04)
[2021-06-04] MEDS: MELATONIN 5 MG TABLET PO SCH (20:04)
[2021-06-05 01:42] VITALS: BP 132/84
[2021-06-05] MEDS: LEVOTHYROXINE SODIUM 50 MCG TABLET PO SCH (06:07)
[2021-06-05 08:51] VITALS: BP 100/59
[2021-06-05] MEDS: DIVALPROEX SODIUM 250 MG DR TABLET PO SCH ×3 (09:42→20:25)
[2021-06-05] MEDS: TRIHEXYPHENIDYL HCL 2 MG TABLET PO SCH ×3 (09:42→16:33)
[2021-06-05] MEDS: LevETIRAcetam 500 MG TABLET PO SCH ×2 (09:42→16:34)
[2021-06-05] MEDS: OMEGA-3/DHA/EPA/FISH OIL 1,000 MG CAPSULE PO SCH (09:42)
[2021-06-05] MEDS: OLANZapine 5 MG RAPDIS TABLET PO SCH ×2 (09:42→16:34)
[2021-06-05] MEDS: MULTIVITAMINS WITH MINERALS, THERAPEUTIC TABLET PO SCH (09:42)
[2021-06-05] MEDS: LORazepam 2 MG TABLET PO PRN (16:34)
[2021-06-05 16:49] VITALS: BP 146/89
[2021-06-05] MEDS: HALOPERIDOL 5 MG TABLET PO PRN (18:01)
[2021-06-05] MEDS: MELATONIN 5 MG TABLET PO SCH (20:26)
[2021-06-05] MEDS: HALOPERIDOL 10 MG TABLET PO SCH (20:26)
[2021-06-05] MEDS: NALTREXONE HCL 50 MG TABLET PO SCH (20:27)
[2021-06-06] MEDS: LEVOTHYROXINE SODIUM 50 MCG TABLET PO SCH (06:03)
[2021-06-06] MEDS: MULTIVITAMINS WITH MINERALS, THERAPEUTIC TABLET PO SCH (07:49)
[2021-06-06] MEDS: OMEGA-3/DHA/EPA/FISH OIL 1,000 MG CAPSULE PO SCH (07:49)
[2021-06-06] MEDS: OLANZapine 5 MG RAPDIS TABLET PO SCH ×2 (07:50→16:41)
[2021-06-06] MEDS: DIVALPROEX SODIUM 250 MG DR TABLET PO SCH ×3 (07:50→20:37)
[2021-06-06] MEDS: TRIHEXYPHENIDYL HCL 2 MG TABLET PO SCH ×3 (07:50→16:41)
[2021-06-06] MEDS: LevETIRAcetam 500 MG TABLET PO SCH ×2 (07:50→16:40)
[2021-06-06 08:00] VITALS: BP 98/53
[2021-06-06 16:00] VITALS: BP 104/68
[2021-06-06] MEDS: HALOPERIDOL 10 MG TABLET PO SCH (20:38)
[2021-06-06] MEDS: MELATONIN 5 MG TABLET PO SCH (20:38)
[2021-06-06] MEDS: NALTREXONE HCL 50 MG TABLET PO SCH (20:39)
[2021-06-07] MEDS: LEVOTHYROXINE SODIUM 50 MCG TABLET PO SCH (06:15)
[2021-06-07] MEDS: TRIHEXYPHENIDYL HCL 2 MG TABLET PO SCH ×3 (08:31→16:14)
[2021-06-07] MEDS: MULTIVITAMINS WITH MINERALS, THERAPEUTIC TABLET PO SCH (08:31)
[2021-06-07] MEDS: OLANZapine 5 MG RAPDIS TABLET PO SCH ×2 (08:31→16:15)
[2021-06-07] MEDS: DIVALPROEX SODIUM 250 MG DR TABLET PO SCH ×3 (08:31→21:22)
[2021-06-07] MEDS: OMEGA-3/DHA/EPA/FISH OIL 1,000 MG CAPSULE PO SCH (08:31)
[2021-06-07] MEDS: LevETIRAcetam 500 MG TABLET PO SCH ×2 (08:32→16:14)
[2021-06-07 08:33] VITALS: BP 102/64
[2021-06-07 16:00] VITALS: BP 112/63
[2021-06-07] MEDS: HALOPERIDOL 10 MG TABLET PO SCH (21:22)
[2021-06-07] MEDS: MELATONIN 5 MG TABLET PO SCH (21:23)
[2021-06-07] MEDS: NALTREXONE HCL 50 MG TABLET PO SCH (21:23)
[2021-06-08] MEDS: LEVOTHYROXINE SODIUM 50 MCG TABLET PO SCH (06:04)
[2021-06-08] MEDS: TRIHEXYPHENIDYL HCL 2 MG TABLET PO SCH ×3 (08:42→16:08)
[2021-06-08] MEDS: OLANZapine 5 MG RAPDIS TABLET PO SCH ×2 (08:42→16:08)
[2021-06-08] MEDS: MULTIVITAMINS WITH MINERALS, THERAPEUTIC TABLET PO SCH (08:42)
[2021-06-08] MEDS: LevETIRAcetam 500 MG TABLET PO SCH ×2 (08:43→16:08)
[2021-06-08] MEDS: DIVALPROEX SODIUM 250 MG DR TABLET PO SCH ×3 (08:43→20:29)
[2021-06-08] MEDS: OMEGA-3/DHA/EPA/FISH OIL 1,000 MG CAPSULE PO SCH (08:43)
[2021-06-08 11:12] VITALS: BP 132/68
[2021-06-08 11:59] LABS: COVID AG,FIA SOURCE NASAL SWAB
[2021-06-08 16:43] VITALS: BP 139/99
[2021-06-08] MEDS: NALTREXONE HCL 50 MG TABLET PO SCH (20:29)
[2021-06-08] MEDS: MELATONIN 5 MG TABLET PO SCH (20:29)
[2021-06-08] MEDS: HALOPERIDOL 10 MG TABLET PO SCH (20:29)
[2021-06-09] MEDS: LEVOTHYROXINE SODIUM 50 MCG TABLET PO SCH (06:26)
[2021-06-09 08:00] VITALS: BP 112/66
[2021-06-09] MEDS: LevETIRAcetam 500 MG TABLET PO SCH ×2 (09:15→16:20)
[2021-06-09] MEDS: TRIHEXYPHENIDYL HCL 2 MG TABLET PO SCH ×3 (09:15→16:20)
[2021-06-09] MEDS: OMEGA-3/DHA/EPA/FISH OIL 1,000 MG CAPSULE PO SCH (09:15)
[2021-06-09] MEDS: MULTIVITAMINS WITH MINERALS, THERAPEUTIC TABLET PO SCH (09:15)
[2021-06-09] MEDS: DIVALPROEX SODIUM 250 MG DR TABLET PO SCH ×3 (09:16→20:30)
[2021-06-09] MEDS: OLANZapine 5 MG RAPDIS TABLET PO SCH ×2 (09:16→16:20)
[2021-06-09 16:45] VITALS: BP 158/78
[2021-06-09] MEDS: HALOPERIDOL 10 MG TABLET PO SCH (20:30)
[2021-06-09] MEDS: NALTREXONE HCL 50 MG TABLET PO SCH (20:31)
[2021-06-09] MEDS: MELATONIN 5 MG TABLET PO SCH (20:31)
[2021-06-10] MEDS: LEVOTHYROXINE SODIUM 50 MCG TABLET PO SCH (06:30)
[2021-06-10 08:00] VITALS: BP 121/67
[2021-06-10] MEDS: MULTIVITAMINS WITH MINERALS, THERAPEUTIC TABLET PO SCH (08:46)
[2021-06-10] MEDS: TRIHEXYPHENIDYL HCL 2 MG TABLET PO SCH ×3 (08:46→16:33)
[2021-06-10] MEDS: LevETIRAcetam 500 MG TABLET PO SCH ×2 (08:46→16:33)
[2021-06-10] MEDS: OLANZapine 5 MG RAPDIS TABLET PO SCH ×2 (08:47→16:33)
[2021-06-10] MEDS: DIVALPROEX SODIUM 250 MG DR TABLET PO SCH ×3 (08:47→20:52)
[2021-06-10] MEDS: OMEGA-3/DHA/EPA/FISH OIL 1,000 MG CAPSULE PO SCH (08:47)
[2021-06-10 16:16] VITALS: BP 156/98
[2021-06-10] MEDS: MELATONIN 5 MG TABLET PO SCH (20:52)
[2021-06-10] MEDS: NALTREXONE HCL 50 MG TABLET PO SCH (20:52)
[2021-06-10] MEDS: HALOPERIDOL 10 MG TABLET PO SCH (20:52)
[2021-06-11] MEDS: LEVOTHYROXINE SODIUM 50 MCG TABLET PO SCH (06:37)
[2021-06-11] MEDS: TRIHEXYPHENIDYL HCL 2 MG TABLET PO SCH ×3 (08:24→16:32)
[2021-06-11] MEDS: OMEGA-3/DHA/EPA/FISH OIL 1,000 MG CAPSULE PO SCH (08:25)
[2021-06-11] MEDS: OLANZapine 5 MG RAPDIS TABLET PO SCH ×2 (08:25→16:33)
[2021-06-11] MEDS: DIVALPROEX SODIUM 250 MG DR TABLET PO SCH ×3 (08:25→20:52)
[2021-06-11] MEDS: LevETIRAcetam 500 MG TABLET PO SCH ×2 (08:25→16:33)
[2021-06-11] MEDS: MULTIVITAMINS WITH MINERALS, THERAPEUTIC TABLET PO SCH (08:25)
[2021-06-11 09:36] VITALS: BP 107/69
[2021-06-11 16:22] VITALS: BP 131/82
[2021-06-11] MEDS: HALOPERIDOL 10 MG TABLET PO SCH (20:53)
[2021-06-11] MEDS: MELATONIN 5 MG TABLET PO SCH (20:53)
[2021-06-11] MEDS: NALTREXONE HCL 50 MG TABLET PO SCH (20:53)
[2021-06-12] MEDS: LEVOTHYROXINE SODIUM 50 MCG TABLET PO SCH (06:21)
[2021-06-12] MEDS: MULTIVITAMINS WITH MINERALS, THERAPEUTIC TABLET PO SCH (09:47)
[2021-06-12] MEDS: DIVALPROEX SODIUM 250 MG DR TABLET PO SCH ×3 (09:47→20:06)
[2021-06-12] MEDS: LevETIRAcetam 500 MG TABLET PO SCH ×2 (09:47→16:02)
[2021-06-12] MEDS: TRIHEXYPHENIDYL HCL 2 MG TABLET PO SCH ×3 (09:47→16:01)
[2021-06-12] MEDS: OLANZapine 5 MG RAPDIS TABLET PO SCH ×2 (09:47→16:01)
[2021-06-12] MEDS: OMEGA-3/DHA/EPA/FISH OIL 1,000 MG CAPSULE PO SCH (09:48)
[2021-06-12 16:37] VITALS: BP 133/72
[2021-06-12] MEDS: MELATONIN 5 MG TABLET PO SCH (20:05)
[2021-06-12] MEDS: NALTREXONE HCL 50 MG TABLET PO SCH (20:05)
[2021-06-12] MEDS: HALOPERIDOL 10 MG TABLET PO SCH (20:06)
[2021-06-13] MEDS: LEVOTHYROXINE SODIUM 50 MCG TABLET PO SCH (06:46)
[2021-06-13 08:36] VITALS: BP 101/52
[2021-06-13] MEDS: TRIHEXYPHENIDYL HCL 2 MG TABLET PO SCH ×3 (09:45→16:17)
[2021-06-13] MEDS: LevETIRAcetam 500 MG TABLET PO SCH ×2 (09:45→16:19)
[2021-06-13] MEDS: MULTIVITAMINS WITH MINERALS, THERAPEUTIC TABLET PO SCH (09:45)
[2021-06-13] MEDS: DIVALPROEX SODIUM 250 MG DR TABLET PO SCH ×3 (09:45→20:07)
[2021-06-13] MEDS: OMEGA-3/DHA/EPA/FISH OIL 1,000 MG CAPSULE PO SCH (09:45)
[2021-06-13] MEDS: OLANZapine 5 MG RAPDIS TABLET PO SCH ×2 (09:45→16:19)
[2021-06-13 16:32] VITALS: BP 135/86
[2021-06-13] MEDS: NALTREXONE HCL 50 MG TABLET PO SCH (20:07)
[2021-06-13] MEDS: MELATONIN 5 MG TABLET PO SCH (20:07)
[2021-06-13] MEDS: HALOPERIDOL 10 MG TABLET PO SCH (20:07)
[2021-06-14] MEDS: LEVOTHYROXINE SODIUM 50 MCG TABLET PO SCH (06:45)
[2021-06-14] MEDS: DIVALPROEX SODIUM 250 MG DR TABLET PO SCH ×3 (09:15→20:07)
[2021-06-14] MEDS: MULTIVITAMINS WITH MINERALS, THERAPEUTIC TABLET PO SCH (09:15)
[2021-06-14] MEDS: TRIHEXYPHENIDYL HCL 2 MG TABLET PO SCH ×3 (09:15→17:00)
[2021-06-14] MEDS: OMEGA-3/DHA/EPA/FISH OIL 1,000 MG CAPSULE PO SCH (09:15)
[2021-06-14] MEDS: LevETIRAcetam 500 MG TABLET PO SCH ×2 (09:15→17:00)
[2021-06-14] MEDS: OLANZapine 5 MG RAPDIS TABLET PO SCH ×2 (09:16→17:00)
[2021-06-14 09:39] VITALS: BP 98/63
[2021-06-14 16:41] VITALS: BP 149/88
[2021-06-14] MEDS: MELATONIN 5 MG TABLET PO SCH (20:07)
[2021-06-14] MEDS: HALOPERIDOL 10 MG TABLET PO SCH (20:07)
[2021-06-14] MEDS: NALTREXONE HCL 50 MG TABLET PO SCH (20:08)
[2021-06-15] MEDS: LEVOTHYROXINE SODIUM 50 MCG TABLET PO SCH (06:21)
[2021-06-15 08:00] VITALS: BP 99/59
[2021-06-15] MEDS: TRIHEXYPHENIDYL HCL 2 MG TABLET PO SCH ×3 (08:17→16:42)
[2021-06-15] MEDS: MULTIVITAMINS WITH MINERALS, THERAPEUTIC TABLET PO SCH (08:17)
[2021-06-15] MEDS: DIVALPROEX SODIUM 250 MG DR TABLET PO SCH ×3 (08:18→20:02)
[2021-06-15] MEDS: LevETIRAcetam 500 MG TABLET PO SCH ×2 (08:18→16:43)
[2021-06-15] MEDS: OLANZapine 5 MG RAPDIS TABLET PO SCH ×2 (08:18→16:43)
[2021-06-15] MEDS: OMEGA-3/DHA/EPA/FISH OIL 1,000 MG CAPSULE PO SCH (08:18)
[2021-06-15 14:13] LABS: COVID AG,FIA SOURCE NASAL SWAB
[2021-06-15 16:19] VITALS: BP 157/94
[2021-06-15] MEDS: HALOPERIDOL 10 MG TABLET PO SCH (20:02)
[2021-06-15] MEDS: NALTREXONE HCL 50 MG TABLET PO SCH (20:02)
[2021-06-15] MEDS: MELATONIN 5 MG TABLET PO SCH (20:03)
[2021-06-15] MEDS: ZOLPIDEM TARTRATE 10 MG TABLET PO PRN (21:00)
[2021-06-16] MEDS: LEVOTHYROXINE SODIUM 50 MCG TABLET PO SCH (06:59)
[2021-06-16 08:00] VITALS: BP 107/56
[2021-06-16] MEDS: OLANZapine 5 MG RAPDIS TABLET PO SCH ×2 (08:48→16:17)
[2021-06-16] MEDS: LevETIRAcetam 500 MG TABLET PO SCH ×2 (08:48→16:17)
[2021-06-16] MEDS: OMEGA-3/DHA/EPA/FISH OIL 1,000 MG CAPSULE PO SCH (08:49)
[2021-06-16] MEDS: TRIHEXYPHENIDYL HCL 2 MG TABLET PO SCH ×3 (08:49→16:17)
[2021-06-16] MEDS: DIVALPROEX SODIUM 250 MG DR TABLET PO SCH ×3 (08:49→20:05)
[2021-06-16] MEDS: MULTIVITAMINS WITH MINERALS, THERAPEUTIC TABLET PO SCH (08:51)
[2021-06-16 16:51] VITALS: BP 119/74
[2021-06-16] MEDS ORDERED: LEVO50 PO (19:10)
[2021-06-16] MEDS: MELATONIN 5 MG TABLET PO SCH (20:05)
[2021-06-16] MEDS: NALTREXONE HCL 50 MG TABLET PO SCH (20:05)
[2021-06-16] MEDS: HALOPERIDOL 10 MG TABLET PO SCH (20:05)
== END 2021-06-16 20:45 | disposition home or self-care (01) | DRG 750 ==
LOC: 3EC 04-29 16:45
PROVIDERS: ADMIT Psychiatry & Neurology Psychiatry; ATTEND Psychiatry & Neurology Psychiatry
DX: F20.0 Paranoid schizophrenia (principal); G93.1 Anoxic brain damage, not elsewhere classified; G40.909 Epilepsy, unspecified, not intractable, without status epilepticus; E03.9 Hypothyroidism, unspecified; I10 Essential (primary) hypertension; K59.00 Constipation, unspecified; G47.00 Insomnia, unspecified; F60.0 Paranoid personality disorder; F41.9 Anxiety disorder, unspecified; F32.9 Major depressive disorder, single episode, unspecified; Z20.822 Contact with and (suspected) exposure to COVID-19; Z55.9 Problems related to education and literacy, unspecified; Z59.9 Problem related to housing and economic circumstances, unspecified; Z63.9 Problem related to primary support group, unspecified; Z65.3 Problems related to other legal circumstances; Z93.1 Gastrostomy status; Z79.899 Other long term (current) drug therapy; Z23 Encounter for immunization
CPT/HCPCS: 49450; 80053; 80061; 80164; 80307; 81003; 83036; 84439; 84443; 85025; 86592; 87081; 90686; G0482; Q9967